=== PATIENT | male | born 1980 | race Hispanic/Latino ===

== ENCOUNTER → 2020-02-29 | Day surgery (SDC) | payer OTHER ==
[~2020-02-29] MED LIST: ALPRAZOLAM1 MG PO; LIDOCAINE 1% W/EPINEPHRINE 20 ML VIAL ONE; NEOSTIGMINE 1 MG/ML 10ML VIAL ONE
--- NOTE | 2020-02-29 05:19 | Pre Op History & Physical ---
CHIEF COMPLAINT: Right-sided neck mass for about 9 months. HISTORY OF PRESENT ILLNESS: This 40-year-old male was noted to have a lesion in the right neck for about 6 months. The patient has no dysphagia, odynophagia, or shortness of breath. The patient has no trauma to the area. The lesion is persistent. The patient initially had a CT scan with no contrast, which showed that is a 5.5 cm lesion in the submandibular area. A repeat CT scan with contrast was done, which showed that the lesion be suggestive of a plunging ranula. No obvious lesion was noted in the mouth on exam however. REVIEW OF SYSTEMS: System review showed no recent cardiovascular, respiratory, or GI problem. PAST MEDICAL HISTORY: The patient has no significant medical problem. PAST SURGICAL HISTORY: The patient has previous surgery. ALLERGIES: HE HAS NO KNOWN ALLERGIES. MEDICATIONS: The patient is on no regular medication. SOCIAL HISTORY: Nonsmoker and nondrinker. FAMILY HISTORY: Noncontributory. PHYSICAL EXAMINATION: VITAL SIGNS: The patient's vital signs were within normal limits. HEENT: Ear exam showed normal tympanic membrane bilaterally. Nasal exam showed deviated nasal septum on the left side about 20%. Oropharynx and oral cavity showed no obvious abnormalities. No lesion was noted in the intraoral area. Oropharynx and oral cavity showed 2+ tonsils bilaterally with Mallampati level two. Questionable lesion was noted in the sublingual area. Submandibular mass was palpable to the cystic in appearance about 4 x 3 cm. CHEST: Showed good air entry bilaterally. CARDIOVASCULAR: Showed S1, S2. No murmur noted. ASSESSMENT AND PLAN: Mr. 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 The suggested treatment is excision of lesion with appropriate closure and also possible excision of sublingual gland along with excision of the sub-mandibular mass and other necessary procedure. Complication of procedure includes but not limited to bleeding, infection, lingual nerve injury, facial nerve injury, greater auricular nerve injury, submandibular duct injury, wound breakdown, poor cosmetic result, airway compromise, submandibular sialoadenitis, persistent recurrence of the problem. Alternatives will be continue observation and I and D of the lesion in the office setting. The patient has elected to undergo surgical procedure. MD SUSI Gillespie/MODL /[id number] cc: Marco Pizano MD
--- NOTE | 2020-02-29 11:36 | Operative Report ---
DATE OF PROCEDURE: 02/29/2020 SURGEON: Mike Myers MD CHIEF COMPLAINT: Right submandibular mass. POSTOPERATIVE DIAGNOSIS: Right submandibular mass. OPERATIVE PROCEDURE: Excision of right submandibular gland with cystic mass. ANESTHESIA: Anesthesiology group. INDICATIONS: This 40-year-old male was noted to have a 9 months history of lesion in the right submandibular area. The lesion has been increasing in size. A CT scan of the neck initially done was not contrast, showed a lesion that is likely cystic, origin was difficult to determine. A repeat CT scan of the neck with contrast showed a lesion coming from the submandibular gland area. The radiologist called it a plunging ranula. I had a discussion with the radiologist about this lesion. He did not see any connection with the sublingual or floor of the mouth area. The lesion seems to stop and go to the submandibular gland. On examination, no ranula or swelling was noted in the floor of the mouth. The lesion was mainly noted in the submandibular region, which is soft in appearance and is likely cystic in appearance about 4 x 5 cm. It was decided that excision of the cyst along with likely removal of the submandibular gland and other necessary procedure will be beneficial for him. DESCRIPTION OF PROCEDURE: The patient was taken to the operating room, put under general anesthesia, endotracheally intubated. An incision was marked out about two fingerbreadths from the margin of the mandible. Dissection was carried down to the subplatysmal plane. The cyst come into view immediately, there was noted to be right under the platysma muscle. The cyst was followed up and the cyst seems to be intertwine with the submandibular gland. The cyst was chased up all the way to the superior part of the cyst. No obvious connection seems to be connected with the sublingual area. The cyst was able to be dissected off. The submandibular gland was partially dissected after the cyst was removed. The gland was dissected from the posterior constraint. The submandibular duct comes into view, this was tied off using 2-0 chromic suture. The facial and retromandibular vein were identified and tied off using 3-0 silk ties. The submandibular ganglion was identified and this was tied off using 2-0 chromic suture. The plan was dissected off and the hypoglossal nerve was identified and not disturbed. This was sent for permanent section. The closure of the area was undertaken. The submandibular triangle was irrigated with copious amount of normal saline. Any bleeding area was controlled using the bipolar cautery. The marginal and mandibular nerve was identified and this was not disturbed. A quarter-inch Alyx drain was inserted in the submandibular triangle. The platysmal flap was advanced in the midline and closed in itself using 3-0 Vicryl suture in the interrupted fashion. The skin incision was closed using 4-0 Monocryl suture in interrupted fashion. The Festus drain was sutured in place. A pressure dressing was applied. The patient tolerated the above procedure well with estimated blood loss of about 5-10 mL. He was able to be transferred to recovery room in stable condition. MD SUSI Gillespie/MODL /[id number]
[2020-02-29 11:45] VITALS: BP 118/82
== END | disposition home or self-care (01) ==
LOC: OR 05:54 → EDBD 08:00
PROVIDERS: ATTEND Otolaryngology Otolaryngology/Facial Plastic Surgery
DX: K11.6 Mucocele of salivary gland (principal); K11.20 Sialoadenitis, unspecified; K21.9 Gastro-esophageal reflux disease without esophagitis; N20.0 Calculus of kidney; F41.9 Anxiety disorder, unspecified; Z01.812 Encounter for preprocedural laboratory examination; Z11.59 Encounter for screening for other viral diseases
CPT/HCPCS: 88305; J2710; U0002